=== PATIENT | male | born 1945 | race Caucasian/White ===

== ENCOUNTER → 2017-10-14 | Outpatient (CLI) | payer MEDICARE | LOC: M SMT 13:01 | DX: N40.1 Benign prostatic hyperplasia with lower urinary tract symptoms (principal) | CPT/HCPCS: 52000; 76857 ==

== ENCOUNTER → 2022-03-28 | Outpatient (CLI) | payer MEDICARE | LOC: M WUC 15:17 | PROVIDERS: ATTEND Physician Assistant | DX: R05.9 Cough, unspecified (principal) ==

== ENCOUNTER → 2022-06-11 | Outpatient (CLI) | payer MEDICARE | LOC: M WUC 14:44 | PROVIDERS: ATTEND Physician Assistant Medical | DX: L03.90 Cellulitis, unspecified (principal); S81.802A Unspecified open wound, left lower leg, initial encounter; T79.9XXA Unspecified early complication of trauma, initial encounter ==

== ENCOUNTER → 2024-08-10 | Outpatient (REF) | payer OTHER ==
[2024-08-14 14:58] LABS: PSA FREE 1.1 ng/mL; PSA TOTAL 2.3 ng/mL (< OR = 4.0)
== END ==
LOC: M LAB REF 16:13
PROVIDERS: ATTEND Physician Assistant Medical
DX: R97.20 Elevated prostate specific antigen [PSA] (principal)

== ENCOUNTER → 2025-02-14 | Outpatient (REF) | payer OTHER ==
[2025-02-14 18:01] LABS: INR 0.97; PARTIAL THROMBOPLASTIN TIME 25.5 SECONDS (24.8-34.2); PROTHROMBIN TIME 13.2 SECONDS (12.5-14.5)
== END ==
LOC: M LAB REF 17:28
PROVIDERS: ATTEND Physician Assistant Medical
DX: Z01.818 Encounter for other preprocedural examination (principal); N40.1 Benign prostatic hyperplasia with lower urinary tract symptoms

== ENCOUNTER → 2025-02-14 | Outpatient (REF) | payer OTHER ==
[~2025-02-14] MED LIST: CIPR-249 PO; FINA5TAB2 PO; TAMS1CAP17 PO
== END ==
LOC: M SMT 14:57
PROVIDERS: ATTEND Urology
DX: Z01.818 Encounter for other preprocedural examination (principal); N40.1 Benign prostatic hyperplasia with lower urinary tract symptoms; N39.0 Urinary tract infection, site not specified